=== PATIENT | male | born 1985 ===

== ENCOUNTER 2019-04-06 06:24 | Day surgery (SDC) | payer OTHER ==
[~2019-04-06] VITALS: Ht 172.7 cm; Wt 95.3 kg
[~2019-04-06 06:24] MED LIST: IBUP200T44 PO; OMEP20CA10 PO; PRAZ2CAP2 PO; ROPI0.5T PO
[2019-04-06] MEDS ORDERED: fentaNYL PF VIAL 100 MCG/2 ML VIAL IV PRN ×2 (07:00)
[2019-04-06] MEDS ORDERED: IV RINGERS,LACTATED 1000ML 1,000 ML IV SCH (07:00)
[2019-04-06] MEDS ORDERED: HYDROmorphone 2 MG/ML VIAL IV PRN (07:00)
[2019-04-06] MEDS ORDERED: ONDANSETRON PF 4 MG/2 ML VIAL. IV PRN (07:00)
[2019-04-06] MEDS ORDERED: AMOX500C PO (07:16)
[2019-04-06] MEDS ORDERED: FLUT9.9S NS (07:17)
[2019-04-06] MEDS ORDERED: ceFAZolin 2GM PREMIX 2 GM/50 ML BAG IV ONE (08:00)
[2019-04-06] MEDS ORDERED: LIDOCAINE 2% PF 5 ML VIAL. ONE (08:18)
[2019-04-06] MEDS ORDERED: PROPOFOL 20 ML IV ONE (08:18)
[2019-04-06] MEDS ORDERED: fentaNYL PF VIAL 100 MCG/2 ML VIAL ONE (08:18)
[2019-04-06] MEDS ORDERED: SUCCINYLCHOLINE 200 MG/10 ML VIAL. ONE (08:18)
[2019-04-06] MEDS ORDERED: ROCURONIUM 50 MG/5 ML VIAL. ONE (08:18)
[2019-04-06] MEDS ORDERED: NEOMY/BACITR/POLYMYXIN OINT PACKET. TP ONE (08:27)
[2019-04-06] MEDS ORDERED: BUPIVAC MPF-EPI 0.5%-1:200000 30 ML VIAL. ONE (08:27)
[2019-04-06] MEDS ORDERED: BACITRACIN 50,000 UNIT in IV NORMAL SALINE 500ML BAG 500 ML IRR ONE (08:30)
[2019-04-06] MEDS ORDERED: OXYMETAZOLINE 0.05% NASAL SPRAY 30ML BOTTLE. NS ONE (08:55)
[2019-04-06] MEDS ORDERED: GELATIN SPONGE SIZE 12-7MM SPONGE. ONE ×6 (08:55)
[2019-04-06] MEDS ORDERED: CHLORHEXIDINE 0.12% 15 ML MOUTHWASH. ONE (09:05)
[2019-04-06] MEDS ORDERED: ONDANSETRON PF 4 MG/2 ML VIAL. ONE (10:04)
[2019-04-06] MEDS ORDERED: DEXAMETHASONE SOD PHOS 20 MG/5 ML VIAL. ONE (10:04)
[2019-04-06] MEDS ORDERED: DESFLURANE 31 TO 60 MINUTES IH ONE (10:04)
[2019-04-06] MEDS ORDERED: GLYCOPYRROLATE 1 MG/5 ML VIAL. ONE (10:23)
[2019-04-06] MEDS ORDERED: NEOSTIGMINE METHYLSULFATE 5 MG/5 ML SYRINGE. ONE (10:23)
[2019-04-06] MEDS ORDERED: PHENYLEPHRINE in 0.9% NACL PF 1 MG/10 ML SYRINGE. IV ONE (11:18)
--- NOTE | 2019-04-06 11:51 | PDOC4 ---
OPERATIVE NOTE Date: Date: April 06, 2019 Pre-Op Diagnosis: caries, non restorable teeth 3,4,5,6,7,8,9,10,11,12,13,14,19,20,21,22,23,24,25,26,27,28,29,30 Post-Op Diagnosis: same Procedure Performed: extraction of caries, non restorable teeth 3,4,5,6,7,8,9,10,11,12,13,14,19,2 0,21,22,23,24,25,26,27,28,29,30 Surgeon: camden Anesthesia Type: hopgood Blood Loss: 50 Specimans Obtained: teeth disposed of in OR Findings: see dictation Complications: none noted Operative Note: see dictation caries, non restorable teeth 3,4,5,6,7,8,9,10,11,12,13,14,19,20,21,22,23,24,25,26,27,28,29,30 DORINDA CAO DMD April 06, 2019 11:51
[2019-04-06] MEDS: PROCHLORPERAZINE 10 MG/2 ML VIAL. IV PRN ×2 (12:00→12:16)
[2019-04-06] MEDS: MORPHINE SULFATE 2 MG/ML VIAL. IV PRN ×2 (12:01→12:17)
[2019-04-06] MEDS ORDERED: HYDROcodone/APAP 7.5/325MG 1 TAB TABLET PO ONE (13:00)
[2019-04-06 13:05] VITALS: BP 160/87
--- NOTE | 2019-04-06 15:14 | OP ---
DATE OF SURGERY: 04/06/2019 ATTENDING PHYSICIAN: Dorinda Cao DMD, MD. 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 PREOPERATIVE DIAGNOSES: Hypertension, previous history of substance use, anxiety, depression, bipolar disease and also caries, nonrestorable teeth numbers 3, 4, 5, 6, 7, 8, 9, 10, 11, 12, 13, 14, 19, 20, 21, 22, 23, 24, 25, 26, 27, 28, 29 and 30. He also has bilateral mandibular valeria. POSTOPERATIVE DIAGNOSES: Hypertension, previous history of substance use, anxiety, depression, bipolar disease and also caries, nonrestorable teeth numbers 3, 4, 5, 6, 7, 8, 9, 10, 11, 12, 13, 14, 19, 20, 21, 22, 23, 24, 25, 26, 27, 28, 29 and 30. He also has bilateral mandibular valeria. PROCEDURES PERFORMED: Surgical removal of aforementioned teeth 3, 4, 5, 6, 7, 8, 9, 10, 11, 12, 13, 14, 19, 20, 21, 22, 23, 24, 25, 26, 27, 28, 29 and 30, four quadrants alveoloplasty upper right, upper left, lower right, lower left and bilateral mandibular valeria removal. BRIEF HISTORY: The patient is a 34-year-old gentleman referred to us by the [facility] for removal of carious nonrestorable teeth considering his multiple comorbidities and removal of the valeria. His case was escalated to the setting of the OR for appropriate management. History and physical was performed in our clinic. A permit was obtained for surgery. The patient was affable with our plan. BLOOD LOSS: Approximately 50 mL. DRAINS PLACED: None. SPECIMEN SENT: None. Teeth were disposed in the OR. COMPLICATIONS: None noted at the time of surgery. OPERATIVE DESCRIPTION: After the history and physical was updated in the preoperative holding area, the patient was transported by the operating service to the operative suite, placed in supine position. All pads were checked. Pressure points were checked. The patient was then induced with general anesthetic and the patient was intubated with a nasal ROBINA intubation. This tube was secured with a traditional turban head wrap. Care was taken to keep pressure off the ala of the nose. The patient was then prepped and draped in the normal sterile fashion. A moistened throat pack was placed and Peridex was placed in the mouth and the teeth were cleansed. Surgery began in the upper right hand quadrant with administration of local anesthetic. Approximately 20 mL of 0.5% Marcaine with 1:200,000 epinephrine were administered in all proposed surgical areas in all 4 quadrants and valeria and additional 10 mL were administered at the culmination of the procedure, for a total of 30 mL of 0.5% Marcaine with epinephrine. The procedure began in the upper right hand quadrant with a 15 blade and a full thickness mucoperiosteal flap was reflected buccally on the upper right and the lower right quadrants. Also, the lingual valeria were exposed in the lower right hand quadrant. Teeth were then luxated, elevated and extracted without complication. Rongeurs were employed with a bone file to contour the alveolus to perform upper right and lower right alveoloplasty. Curettage was employed to remove all the contents from the extraction sites. These areas were lavaged and suctioned. The valeria were removed with rotary instrumentation and with copious normal sterile saline irrigation. These areas were lavaged and suctioned and over closed with a 3-0 chromic gut running locked sutures. The procedure continued on the left side. The bite block was changed. The same procedures were performed with a 15 blade, full thickness mucoperiosteal flaps buccally and lingually to expose the mandibular valeria on the left. All teeth were removed with elevators, forceps and rongeurs as indicated. Alveoloplasty was performed with rongeurs and bone file and curettage to clean all the apical granulomas out of the extraction sites. The rotary instrumentation was employed with a bur to remove the mandibular valeria on the lower left as well in a similar fashion. These sites were lavaged and suctioned. Gelfoam was actually placed in all extraction sites and the quadrants on the upper left and lower left were packed with Gelfoam and oversewn with 3-0 chromic gut suture in a running locked fashion. The patient was then hemostatic and found to be appropriate for completion of the surgery. The sites were lavaged and suctioned and then moistened throat pack was removed. An OG was passed and the stomach was decompressed. The patient was then returned to the care of anesthesia where he was awakened and extubated without complication and transported to the PACU in stable condition. DORINDA CAO DMD DR: Arelis JOB#: [id number] / [id number]
== END 2019-04-06 13:37 | disposition home or self-care (01) ==
LOC: SURG 06:24
PROVIDERS: ATTEND Dentist Oral and Maxillofacial Surgery
DX: K02.9 Dental caries, unspecified (principal); I10 Essential (primary) hypertension; F31.9 Bipolar disorder, unspecified; Z98.890 Other specified postprocedural states; Z87.891 Personal history of nicotine dependence
CPT/HCPCS: 41874; A7015; J0330; J0696; J0780; J1100; J2001; J2270; J2370; J2405; J2704; J2710; J3010; J3490; J7040